=== PATIENT | male | born 2000 | race Caucasian/White ===

== ENCOUNTER → 2024-06-18 11:19 | Outpatient (REF) | payer OTHER, SELFPAY ==
[2024-06-18 18:52] LABS: Hepatitis B Surface Antibody Negative
[2024-06-20 12:27] LABS: Quantiferon Mitogen minus NIL 9.99 IU/mL; Quantiferon NIL 0.01 IU/mL; Quantiferon TB Gold Plus Negative (Negative)
== END ==
LOC: REG 11:19
PROVIDERS: ATTENDING PHYSICIAN Nurse Practitioner Family
DX: Z23 Encounter for immunization (principal)
CPT/HCPCS: 36415; 86480; 86706

== ENCOUNTER → 2024-08-16 10:54 | Outpatient (REF) | payer OTHER, SELFPAY ==
[2024-08-16 19:10] LABS: Hepatitis B Surface Antibody Negative
== END ==
LOC: OHS 10:54
PROVIDERS: ATTENDING PHYSICIAN Nurse Practitioner Family
DX: Z23 Encounter for immunization (principal)
CPT/HCPCS: 36415; 86706

== ENCOUNTER → 2024-12-05 11:17 | Outpatient (REF) | payer OTHER, SELFPAY ==
[2024-12-07 15:01] LABS: Varicella Zoster IgG (VZV) Positive
== END ==
LOC: OHS 11:17
PROVIDERS: ATTENDING PHYSICIAN Nurse Practitioner Family
DX: Z23 Encounter for immunization (principal)
CPT/HCPCS: 36415; 86787